=== PATIENT | male | born 1935 | race African-American/Black ===

== ENCOUNTER 2017-06-26 12:41 | Inpatient (IN) | payer MEDICARE ==
[~2017-06-26] VITALS: Ht 177.8 cm; Wt 85.7 kg
[2017-06-26] MEDS ORDERED: MORPHINE SULFATE 4 MG/ML CPJ (NOT FOR IM USE) IV ONE ×2 (14:00→18:30)
[2017-06-26 14:41] LABS: HEMATOCRIT. 31.3 % (42.0-52.0); HEMOGLOBIN. 10.1 g/dL (14.0-18.0); MEAN CORPUSCULAR HEMOGLOBIN 26.3 pg (28.0-32.0); MEAN CORPUSCULAR VOLUME 81.1 fL (80.0-94.0); MEAN PLATELET VOLUME 10.1 fl (7.4-10.4); PLATELET 88 x1000/uL (130-400); RED BLOOD CELL COUNT 3.86 mill/uL (4.7-6.1); RED CELL DISTRIBUTION WIDTH 17.9 % (11.6-14.6)
[2017-06-26 14:50] LABS: INR 1.3; PARTIAL THROMBOPLASTIN TIME 36.3 sec (23.4-31.0); PROTHROMBIN TIME 13.2 sec (9.4-11.6)
[2017-06-26 14:51] LABS: CHLORIDE 103 mEq/L (98-107)
[2017-06-26 15:00] LABS: CARBON DIOXIDE 27 mEq/L (21-32)
[2017-06-26 15:31] LABS: ATYPICAL LYMPHOCYTES 1
[2017-06-26 15:33] LABS: PLATELET ESTIMATE DECREASED
[2017-06-26] MEDS ORDERED: LIDOCAINE HCL 1% 20ML VIAL (Pyxis) INJ INFIL ONE (17:15)
[2017-06-26] MEDS ORDERED: CLONIDINE 0.1MG TABLET PO PRN (21:00)
[2017-06-26] MEDS ORDERED: ONDANSETRON HCL 4MG/2ML VIAL IV PRN (21:00)
[2017-06-26] MEDS ORDERED: DIPHENHYDRAMINE 50MG/ML VIAL IV PRN (21:00)
[2017-06-26] MEDS ORDERED: MAGNESIUM HYDROXIDE 400MG/5ML 30ML UDC PO PRN (21:00)
[2017-06-26] MEDS ORDERED: POTASSIUM CHLORIDE 20MEQ TABLET SR PO SCH (21:00)
[2017-06-26] MEDS ORDERED: MAGNESIUM/ALUMINUM HYDROXIDE/SIMETHICONE 30ML UDC PO PRN (21:00)
[2017-06-26 21:30] VITALS: BP 142/66
[2017-06-27] VITALS: BP 128/78
[2017-06-27] MEDS ORDERED: CEPH250C2 PO (00:09)
[2017-06-27] MEDS ORDERED: ALEN70TA46 PO (00:09)
[2017-06-27] MEDS ORDERED: METH2.5T PO (00:09)
[2017-06-27] MEDS ORDERED: LISI10TA5 PO (00:09)
[2017-06-27] MEDS ORDERED: OMEP20CA10 PO (00:09)
[2017-06-27] MEDS ORDERED: HYDR12.529 PO (00:09)
[2017-06-27] MEDS ORDERED: PRED5TAB48 PO (00:09)
[2017-06-27] MEDS ORDERED: GABA-290 PO (00:09)
[2017-06-27] MEDS ORDERED: FOLI-43 PO (00:09)
[2017-06-27] MEDS ORDERED: ATOR20TA65 PO (00:09)
[2017-06-27] MEDS ORDERED: HYDR-519 PO (00:09)
[2017-06-27] MEDS ORDERED: CLAR10 PO (00:09)
[2017-06-27] MEDS ORDERED: ASPI-1159 PO (00:09)
[2017-06-27] MEDS ORDERED: AMIT25TA9 PO (00:11)
[2017-06-27] MEDS ORDERED: MULT-1146 PO (00:26)
[2017-06-27] MEDS: HYDROCODONE/ACETAMINOPHEN 10/325MG TABLET PO PRN ×2 (01:01→11:58)
[2017-06-27] MEDS: SODIUM CHLORIDE 0.9% INJ 3ML FLUSH IVF SCH ×4 (01:03→21:52)
[2017-06-27] MEDS: CEFAZOLIN 1000MG PREMIX 50 ML IV SCH ×3 (03:49→19:28)
[2017-06-27 04:00] VITALS: BP 113/47
[2017-06-27] MEDS: OMEPRAZOLE 20MG CAPSULE EXTENDED RELEASE PO SCH ×2 (06:26→21:52)
[2017-06-27] MEDS: GABAPENTIN 300MG CAPSULE PO SCH ×3 (06:26→21:52)
[2017-06-27 06:38] LABS: HEMATOCRIT. 31.6 % (42.0-52.0); HEMOGLOBIN. 10.2 g/dL (14.0-18.0); MEAN CORPUSCULAR HEMOGLOBIN 26.1 pg (28.0-32.0); MEAN CORPUSCULAR VOLUME 80.7 fL (80.0-94.0); MEAN PLATELET VOLUME 10.1 fl (7.4-10.4); PLATELET 105 x1000/uL (130-400); RED BLOOD CELL COUNT 3.91 mill/uL (4.7-6.1); RED CELL DISTRIBUTION WIDTH 17.9 % (11.6-14.6)
[2017-06-27 06:52] LABS: CARBON DIOXIDE 26 mEq/L (21-32); CHLORIDE 106 mEq/L (98-107)
[2017-06-27 08:00] VITALS: BP 140/80
[2017-06-27] MEDS ORDERED: POTASSIUM CHLORIDE 20MEQ TABLET SR PO SCH (09:10)
[2017-06-27] MEDS: LISINOPRIL 10MG TABLET PO SCH (09:19)
[2017-06-27] MEDS: LORATADINE 10MG TABLET PO SCH (09:20)
[2017-06-27] MEDS: FOLIC ACID 1MG TABLET PO SCH (09:20)
[2017-06-27] MEDS: DOCUSATE SODIUM 250MG CAPSULE PO SCH (09:20)
[2017-06-27] MEDS ORDERED: POTASSIUM CHLORIDE 20MEQ TABLET SR PO ONE (09:45)
[2017-06-27 09:51] LABS: *AMPHETAMINES SCREEN URINE NEGATIVE (NEGATIVE); *BARBITURATES SCREEN URINE NEGATIVE (NEGATIVE); *BENZODIAZEPINES SCREEN URINE NEGATIVE (NEGATIVE); *COCAINE SCREEN URINE NEGATIVE (NEGATIVE); CANNABINOID URINE SCREEN NEGATIVE (NEGATIVE); METHADONE URINE SCREEN NEGATIVE (NEGATIVE); OPIATES URINE SCREEN PRESUMTIVE POSITIVE (NEGATIVE); PHENCYCLIDINE URINE SCREEN NEGATIVE (NEGATIVE)
[2017-06-27 10:41] LABS: CLARITY URINE CLEAR (CLEAR); COLOR URINE DARK YELLOW (YELLOW); SPECIFIC GRAVITY URINE 1.027 (1.005-1.030)
[2017-06-27 10:43] LABS: GLUCOSE URINE NEGATIVE (NEGATIVE); KETONES URINE 1+ (NEGATIVE); LEUKOCYTE ESTERASE URINE NEGATIVE (NEGATIVE); NITRITE URINE NEGATIVE (NEGATIVE); OCCULT BLOOD URINE TRACE (NEGATIVE); PROTEIN URINE 2+ (NEGATIVE)
[2017-06-27 12:00] VITALS: BP 114/57
[2017-06-27] MEDS ORDERED: VANCOMYCIN 1,750 MG in DEXT 5% WATER 500 ML IV NR (12:00)
[2017-06-27 16:00] VITALS: BP 141/47
[2017-06-27 20:00] VITALS: BP 131/54
[2017-06-27] MEDS: ATORVASTATIN CALCIUM 20MG TABLET PO SCH (21:52)
[2017-06-27] MEDS: ACETAMINOPHEN 325MG TABLET PO PRN (21:59)
[2017-06-28] VITALS: BP 115/52
[2017-06-28] MEDS ORDERED: VANCOMYCIN 1 G PREMIX 200 ML IV SCH
[2017-06-28] MEDS: CEFAZOLIN 1000MG PREMIX 50 ML IV SCH ×2 (03:41→10:53)
[2017-06-28] MEDS: ACETAMINOPHEN 325MG TABLET PO PRN ×2 (03:42→16:27)
[2017-06-28 04:00] VITALS: BP 113/51
[2017-06-28] MEDS: VANCOMYCIN 1500MG in DEXTROSE 5% WATER 250ML IV SCH ×2 (05:34→23:51)
[2017-06-28] MEDS: GABAPENTIN 300MG CAPSULE PO SCH ×3 (05:44→21:42)
[2017-06-28] MEDS: SODIUM CHLORIDE 0.9% INJ 3ML FLUSH IVF SCH ×3 (05:45→21:42)
[2017-06-28] MEDS: OMEPRAZOLE 20MG CAPSULE EXTENDED RELEASE PO SCH ×2 (06:59→20:51)
[2017-06-28 08:00] VITALS: BP 135/61
[2017-06-28] MEDS: LISINOPRIL 10MG TABLET PO SCH (08:57)
[2017-06-28] MEDS: LORATADINE 10MG TABLET PO SCH (08:57)
[2017-06-28] MEDS: DOCUSATE SODIUM 250MG CAPSULE PO SCH (08:58)
[2017-06-28] MEDS: FOLIC ACID 1MG TABLET PO SCH (08:58)
[2017-06-28] MEDS: HYDROCODONE/ACETAMINOPHEN 10/325MG TABLET PO PRN ×2 (10:50→20:52)
[2017-06-28 11:36] LABS: CLARITY URINE CLEAR (CLEAR); COLOR URINE DARK YELLOW (YELLOW); GLUCOSE URINE NEGATIVE (NEGATIVE); KETONES URINE NEGATIVE (NEGATIVE); LEUKOCYTE ESTERASE URINE TRACE (NEGATIVE); NITRITE URINE NEGATIVE (NEGATIVE); OCCULT BLOOD URINE TRACE (NEGATIVE); PROTEIN URINE 1+ (NEGATIVE); SPECIFIC GRAVITY URINE 1.027 (1.005-1.030)
[2017-06-28 12:57] VITALS: BP 130/58
[2017-06-28] MEDS ORDERED: CEFEPIME 1,000 MG in DEXTROSE 5% WATER 50 ML IV SCH (15:15)
[2017-06-28 16:00] VITALS: BP 126/53
[2017-06-28 17:01] LABS: PLATELET ESTIMATE DECREASED
[2017-06-28 20:00] VITALS: BP 110/49
[2017-06-28] MEDS: ATORVASTATIN CALCIUM 20MG TABLET PO SCH (20:51)
[2017-06-29] VITALS: BP 135/53
[2017-06-29] MEDS: ACETAMINOPHEN 325MG TABLET PO PRN ×2 (01:18→16:43)
[2017-06-29 04:00] VITALS: BP 120/59
[2017-06-29] MEDS: GABAPENTIN 300MG CAPSULE PO SCH ×3 (05:30→21:22)
[2017-06-29] MEDS: HYDROCODONE/ACETAMINOPHEN 10/325MG TABLET PO PRN ×3 (05:34→21:40)
[2017-06-29] MEDS: SODIUM CHLORIDE 0.9% INJ 3ML FLUSH IVF SCH ×3 (05:35→21:23)
[2017-06-29] MEDS: OMEPRAZOLE 20MG CAPSULE EXTENDED RELEASE PO SCH ×2 (06:59→20:55)
[2017-06-29 08:00] VITALS: BP 121/58
[2017-06-29] MEDS ORDERED: CEFTRIAXONE 2 G PREMIX 50 ML IV SCH (09:00)
[2017-06-29] MEDS: FOLIC ACID 1MG TABLET PO SCH (11:30)
[2017-06-29] MEDS: LISINOPRIL 10MG TABLET PO SCH (11:30)
[2017-06-29] MEDS: LORATADINE 10MG TABLET PO SCH (11:30)
[2017-06-29] MEDS: DOCUSATE SODIUM 250MG CAPSULE PO SCH (11:31)
[2017-06-29] MEDS: CEFTRIAXONE 2 G in DEXTROSE 5% WATER 50 ML IV SCH (11:32)
[2017-06-29 12:00] VITALS: BP 119/58
[2017-06-29 16:00] VITALS: BP 137/62
[2017-06-29] MEDS ORDERED: POTASSIUM CHLORIDE 20MEQ TABLET SR PO NR (17:08)
[2017-06-29] MEDS: VANCOMYCIN 1500MG in DEXTROSE 5% WATER 250ML IV SCH (18:55)
[2017-06-29 20:00] VITALS: BP 104/59
[2017-06-29] MEDS: ATORVASTATIN CALCIUM 20MG TABLET PO SCH (20:55)
[2017-06-30] VITALS: BP 110/62
[2017-06-30 04:00] VITALS: BP 102/52
[2017-06-30] MEDS: SODIUM CHLORIDE 0.9% INJ 3ML FLUSH IVF SCH ×3 (05:29→21:47)
[2017-06-30] MEDS: GABAPENTIN 300MG CAPSULE PO SCH ×3 (05:29→21:48)
[2017-06-30] MEDS: OMEPRAZOLE 20MG CAPSULE EXTENDED RELEASE PO SCH ×2 (06:30→21:47)
[2017-06-30 07:12] LABS: BASOPHILS % 0.6 % (0.0-2.0); EOSINOPHILS % 2.1 % (0.0-5.0); HEMATOCRIT. 26.9 % (42.0-52.0); HEMOGLOBIN. 8.8 g/dL (14.0-18.0); LYMPHOCYTES % 8.4 % (20.0-50.0); MEAN CORPUSCULAR HEMOGLOBIN 26.2 pg (28.0-32.0); MEAN CORPUSCULAR VOLUME 80.4 fL (80.0-94.0); MEAN PLATELET VOLUME 9.4 fl (7.4-10.4); MONOCYTES % 12.1 % (2.0-8.0); NEUTROPHILS % 76.8 % (40.0-76.0); PLATELET 137 x1000/uL (130-400); RED BLOOD CELL COUNT 3.35 mill/uL (4.7-6.1); RED CELL DISTRIBUTION WIDTH 17.6 % (11.6-14.6)
[2017-06-30 08:00] VITALS: BP 130/57
[2017-06-30 08:26] LABS: CARBON DIOXIDE 24 mEq/L (21-32); CHLORIDE 106 mEq/L (98-107); VANCOMYCIN TROUGH 19.8 ug/mL (5.0-10.0)
[2017-06-30] MEDS: LORATADINE 10MG TABLET PO SCH (09:11)
[2017-06-30] MEDS: LISINOPRIL 10MG TABLET PO SCH (09:11)
[2017-06-30] MEDS: DOCUSATE SODIUM 250MG CAPSULE PO SCH (09:11)
[2017-06-30] MEDS: FOLIC ACID 1MG TABLET PO SCH (09:11)
[2017-06-30] MEDS: CEFTRIAXONE 2 G in DEXTROSE 5% WATER 50 ML IV SCH (10:26)
[2017-06-30] MEDS: HYDROCODONE/ACETAMINOPHEN 10/325MG TABLET PO PRN (10:27)
[2017-06-30 12:00] VITALS: BP 118/58
[2017-06-30] MEDS: VANCOMYCIN 1500MG in DEXTROSE 5% WATER 250ML IV SCH (12:40)
[2017-06-30 16:00] VITALS: BP 107/62
[2017-06-30 20:00] VITALS: BP 130/53
[2017-06-30] MEDS: ATORVASTATIN CALCIUM 20MG TABLET PO SCH (21:47)
[2017-07-01] VITALS: BP 123/56
[2017-07-01 04:00] VITALS: BP 124/52
[2017-07-01] MEDS: SODIUM CHLORIDE 0.9% INJ 3ML FLUSH IVF SCH ×3 (05:28→21:19)
[2017-07-01] MEDS: GABAPENTIN 300MG CAPSULE PO SCH ×3 (05:32→21:19)
[2017-07-01] MEDS: OMEPRAZOLE 20MG CAPSULE EXTENDED RELEASE PO SCH ×2 (05:33→21:19)
[2017-07-01] MEDS: VANCOMYCIN 1 G PREMIX 200 ML IV SCH ×2 (05:52→17:42)
[2017-07-01 08:00] VITALS: BP 120/70
[2017-07-01] MEDS: FOLIC ACID 1MG TABLET PO SCH (09:48)
[2017-07-01] MEDS: DOCUSATE SODIUM 250MG CAPSULE PO SCH (09:48)
[2017-07-01] MEDS: CEFTRIAXONE 2 G in DEXTROSE 5% WATER 50 ML IV SCH (09:48)
[2017-07-01] MEDS: LORATADINE 10MG TABLET PO SCH (09:49)
[2017-07-01] MEDS: LISINOPRIL 10MG TABLET PO SCH (09:49)
[2017-07-01] MEDS: HYDROCODONE/ACETAMINOPHEN 10/325MG TABLET PO PRN (09:55)
[2017-07-01 12:00] VITALS: BP 116/54
[2017-07-01 13:00] LABS: HEMATOCRIT. 29.3 % (42.0-52.0); HEMOGLOBIN. 9.4 g/dL (14.0-18.0); MEAN CORPUSCULAR HEMOGLOBIN 25.8 pg (28.0-32.0); MEAN CORPUSCULAR VOLUME 80.6 fL (80.0-94.0); MEAN PLATELET VOLUME 9.4 fl (7.4-10.4); PLATELET 207 x1000/uL (130-400); RED BLOOD CELL COUNT 3.63 mill/uL (4.7-6.1); RED CELL DISTRIBUTION WIDTH 17.5 % (11.6-14.6)
[2017-07-01 13:13] LABS: CARBON DIOXIDE 25 mEq/L (21-32); CHLORIDE 108 mEq/L (98-107)
[2017-07-01 16:00] VITALS: BP 119/62
[2017-07-01 20:00] VITALS: BP 152/49
[2017-07-01] MEDS: ATORVASTATIN CALCIUM 20MG TABLET PO SCH (21:19)
[2017-07-01] MEDS: ACETAMINOPHEN 325MG TABLET PO PRN (23:15)
[2017-07-02] VITALS: BP 125/58
[2017-07-02 04:00] VITALS: BP 129/60
[2017-07-02] MEDS: ACETAMINOPHEN 325MG TABLET PO PRN (05:04)
[2017-07-02] MEDS: SODIUM CHLORIDE 0.9% INJ 3ML FLUSH IVF SCH ×3 (05:05→21:24)
[2017-07-02] MEDS: VANCOMYCIN 1 G PREMIX 200 ML IV SCH ×2 (05:05→17:02)
[2017-07-02] MEDS: GABAPENTIN 300MG CAPSULE PO SCH ×3 (06:17→21:24)
[2017-07-02] MEDS: OMEPRAZOLE 20MG CAPSULE EXTENDED RELEASE PO SCH ×2 (06:17→21:24)
[2017-07-02 07:29] VITALS: BP 127/56
[2017-07-02 07:46] LABS: HEMOGLOBIN. 9.3 g/dL (14.0-18.0); MEAN CORPUSCULAR HEMOGLOBIN 25.8 pg (28.0-32.0); MEAN PLATELET VOLUME 9.6 fl (7.4-10.4); PLATELET 157 x1000/uL (130-400); RED BLOOD CELL COUNT 3.62 mill/uL (4.7-6.1)
[2017-07-02 08:30] LABS: CARBON DIOXIDE 22 mEq/L (21-32); CHLORIDE 107 mEq/L (98-107)
[2017-07-02] MEDS: DOCUSATE SODIUM 250MG CAPSULE PO SCH (09:00)
[2017-07-02] MEDS: FOLIC ACID 1MG TABLET PO SCH (09:01)
[2017-07-02] MEDS: LORATADINE 10MG TABLET PO SCH (09:02)
[2017-07-02] MEDS: CEFTRIAXONE 2 G in DEXTROSE 5% WATER 50 ML IV SCH (09:02)
[2017-07-02] MEDS: LISINOPRIL 10MG TABLET PO SCH (09:02)
[2017-07-02 09:48] LABS: PLATELET ESTIMATE NORMAL
[2017-07-02 10:18] LABS: PLATELET ESTIMATE NORMAL
[2017-07-02] MEDS: HYDROCODONE/ACETAMINOPHEN 10/325MG TABLET PO PRN ×2 (11:06→16:49)
[2017-07-02 11:44] VITALS: BP 125/58
[2017-07-02 20:00] VITALS: BP 126/58
[2017-07-02] MEDS: ATORVASTATIN CALCIUM 20MG TABLET PO SCH (21:23)
[2017-07-03] VITALS: BP 141/52
[2017-07-03 04:00] VITALS: BP 151/69
[2017-07-03] MEDS: HYDROCODONE/ACETAMINOPHEN 10/325MG TABLET PO PRN ×3 (04:10→16:24)
[2017-07-03 04:18] LABS: BASOPHILS % 0.7 % (0.0-2.0); HEMATOCRIT. 28.4 % (42.0-52.0); HEMOGLOBIN. 9.1 g/dL (14.0-18.0); LYMPHOCYTES % 8.2 % (20.0-50.0); MEAN CORPUSCULAR HEMOGLOBIN 25.6 pg (28.0-32.0); MEAN CORPUSCULAR VOLUME 79.9 fL (80.0-94.0); MEAN PLATELET VOLUME 8.9 fl (7.4-10.4); MONOCYTES % 10.3 % (2.0-8.0); NEUTROPHILS % 78.8 % (40.0-76.0); PLATELET 218 x1000/uL (130-400); RED BLOOD CELL COUNT 3.55 mill/uL (4.7-6.1); RED CELL DISTRIBUTION WIDTH 17.9 % (11.6-14.6)
[2017-07-03 04:33] LABS: CARBON DIOXIDE 25 mEq/L (21-32); CHLORIDE 107 mEq/L (98-107); VANCOMYCIN TROUGH 16.1 ug/mL (5.0-10.0)
[2017-07-03] MEDS: GABAPENTIN 300MG CAPSULE PO SCH ×3 (06:18→22:56)
[2017-07-03] MEDS: OMEPRAZOLE 20MG CAPSULE EXTENDED RELEASE PO SCH ×2 (06:18→22:56)
[2017-07-03] MEDS: VANCOMYCIN 1 G PREMIX 200 ML IV SCH ×2 (06:19→19:08)
[2017-07-03] MEDS: SODIUM CHLORIDE 0.9% INJ 3ML FLUSH IVF SCH ×3 (06:19→22:56)
[2017-07-03 08:00] VITALS: BP 124/61
[2017-07-03] MEDS: DOCUSATE SODIUM 250MG CAPSULE PO SCH (09:00)
[2017-07-03] MEDS: CEFTRIAXONE 2 G in DEXTROSE 5% WATER 50 ML IV SCH (09:57)
[2017-07-03] MEDS: LORATADINE 10MG TABLET PO SCH (09:57)
[2017-07-03] MEDS: FOLIC ACID 1MG TABLET PO SCH (09:58)
[2017-07-03] MEDS: LISINOPRIL 10MG TABLET PO SCH (09:59)
[2017-07-03 12:00] VITALS: BP 128/60
[2017-07-03 16:00] VITALS: BP 130/56
[2017-07-03 20:00] VITALS: BP 120/53
[2017-07-03] MEDS: ATORVASTATIN CALCIUM 20MG TABLET PO SCH (22:56)
[2017-07-03] MEDS: MORPHINE SULFATE 4 MG/ML CPJ (NOT FOR IM USE) IV PRN (23:11)
[2017-07-04] VITALS (7 sets, daily range): BP systolic 118–163; BP diastolic 47–87
[2017-07-04] MEDS: HYDROCODONE/ACETAMINOPHEN 10/325MG TABLET PO PRN ×3 (01:24→19:38)
[2017-07-04 06:46] LABS: BASOPHILS % 0.5 % (0.0-2.0); EOSINOPHILS % 2.4 % (0.0-5.0); HEMATOCRIT. 27.5 % (42.0-52.0); HEMOGLOBIN. 8.9 g/dL (14.0-18.0); LYMPHOCYTES % 14.2 % (20.0-50.0); MEAN CORPUSCULAR HEMOGLOBIN 25.7 pg (28.0-32.0); MEAN CORPUSCULAR VOLUME 79.3 fL (80.0-94.0); MEAN PLATELET VOLUME 9.3 fl (7.4-10.4); NEUTROPHILS % 72.9 % (40.0-76.0); PLATELET 247 x1000/uL (130-400); RED BLOOD CELL COUNT 3.47 mill/uL (4.7-6.1); RED CELL DISTRIBUTION WIDTH 17.5 % (11.6-14.6)
[2017-07-04] MEDS: VANCOMYCIN 1 G PREMIX 200 ML IV SCH ×2 (07:05→17:11)
[2017-07-04] MEDS: MORPHINE SULFATE 4 MG/ML CPJ (NOT FOR IM USE) IV PRN ×3 (07:05→20:57)
[2017-07-04] MEDS: GABAPENTIN 300MG CAPSULE PO SCH ×2 (07:05→14:54)
[2017-07-04] MEDS: SODIUM CHLORIDE 0.9% INJ 3ML FLUSH IVF SCH ×2 (07:06→17:13)
[2017-07-04 07:13] LABS: CARBON DIOXIDE 27 mEq/L (21-32); CHLORIDE 105 mEq/L (98-107)
[2017-07-04] MEDS: CEFTRIAXONE 2 G in DEXTROSE 5% WATER 50 ML IV SCH (08:37)
[2017-07-04] MEDS: OMEPRAZOLE 20MG CAPSULE EXTENDED RELEASE PO SCH (08:38)
[2017-07-04] MEDS: FOLIC ACID 1MG TABLET PO SCH (08:39)
[2017-07-04] MEDS: LORATADINE 10MG TABLET PO SCH (08:39)
[2017-07-04] MEDS: DOCUSATE SODIUM 250MG CAPSULE PO SCH (08:39)
[2017-07-04] MEDS: LISINOPRIL 10MG TABLET PO SCH (08:39)
[2017-07-04] MEDS: ACETAMINOPHEN 325MG TABLET PO PRN ×2 (08:40→19:38)
[2017-07-04] MEDS ORDERED: ENOXAPARIN 40MG/0.4ML SYR SUBCUT SCH (12:00)
[2017-07-04] MEDS ORDERED: ACETAMINOPHEN 325MG TABLET PO SCH (20:45)
[2017-07-04] MEDS ORDERED: IBUPROFEN 800MG TABLET PO SCH (21:00)
== END 2017-07-04 21:15 | DRG 485 ==
LOC: ER 13:19 → 6EST 18:26 → ENRESERV 18:40
PROVIDERS: ADMIT Internal Medicine; ATTEND Internal Medicine
PROC: 0S9D0ZZ Drainage of Left Knee Joint, Open Approach (ICD-10-PCS; principal; 2017-06-26)
DX: T84.54XA Infection and inflammatory reaction due to internal left knee prosthesis, initial encounter (principal); A41.9 Sepsis, unspecified organism; M00.9 Pyogenic arthritis, unspecified; C76.52 Malignant neoplasm of left lower limb; B95.0 Streptococcus, group A, as the cause of diseases classified elsewhere; G62.9 Polyneuropathy, unspecified; M25.062 Hemarthrosis, left knee; D64.9 Anemia, unspecified; S80.02XA Contusion of left knee, initial encounter; W18.30XA Fall on same level, unspecified, initial encounter; M06.9 Rheumatoid arthritis, unspecified; E87.6 Hypokalemia; K21.9 Gastro-esophageal reflux disease without esophagitis; I10 Essential (primary) hypertension; E78.00 Pure hypercholesterolemia, unspecified; Z96.653 Presence of artificial knee joint, bilateral; Y83.1 Surgical operation with implant of artificial internal device as the cause of abnormal reaction of the patient, or of later complication, without mention of misadventure at the time of the procedure; Y92.89 Other specified places as the place of occurrence of the external cause; Z85.46 Personal history of malignant neoplasm of prostate; Z90.79 Acquired absence of other genital organ(s); Z79.899 Other long term (current) drug therapy; Y93.89 Activity, other specified; Y99.8 Other external cause status
CPT/HCPCS: 10160; 36415; 72170; 73552; 73562; 80048; 80053; 80202; 80305; 81001; 83735; 85025; 85610; 85651; 85730; 86140; 87040; 87070; 87086; 87205; 93970; 96374; 96376; 97110; 97116; 97162; 97530; 99285; J0690; J0696; J1200; J1650; J2270; J3370; J3490; J7050; J7060; A4315

== ENCOUNTER 2018-05-07 22:08 | Emergency (ER) | payer MEDICARE ==
[~2018-05-07] VITALS: Ht 185.4 cm; Wt 73.0 kg
[~2018-05-07 22:08] MED LIST: ALEN70TA46 PO; AMIT25TA9 PO; ASPI-1159 PO; ATOR20TA65 PO; CEPH250C2 PO; CLAR10 PO; FOLI-43 PO; GABA-290 PO; HYDR-519 PO; HYDR12.529 PO; LISI10TA5 PO; METH2.5T PO; MULT-1146 PO; OMEP20CA10 PO; PRED5TAB48 PO
[2018-05-08 00:28] VITALS: BP 109/59
== END 2018-05-08 00:47 | disposition home or self-care (01) ==
LOC: ER 22:08
DX: R53.1 Weakness (principal); R42 Dizziness and giddiness; Z91.81 History of falling; Z96.651 Presence of right artificial knee joint
CPT/HCPCS: 99283